=== PATIENT | female | born 1955 | race Caucasian/White ===

== ENCOUNTER 2020-03-20 08:29 | Emergency (ER) | payer SELFPAY ==
[~2020-03-20] VITALS: Ht 162.6 cm; Wt 77.1 kg
[2020-03-20] MEDS ORDERED: HYDROCODONE/APAP 5MG-325MG TAB PO ONE (08:45)
[2020-03-20] MEDS ORDERED: ONDANSETRON HCL 4 MG ORAL DISINTEGRATING TAB PO ONE (08:45)
--- NOTE | 2020-03-20 09:32 | Emergency Department Note ---
History of Present Illnes History of Present Illness Chief Complaint: Head/Face Trauma History of Present Illness This is a 64 year old female slipped and fell out of tub and hit back of head. States she had no LOC, but felt "dazed" for a second. Pt [id number]. ambulatory. 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 Any updates have been documented here. Past Medical History Recent Fever: No Clinical Suspicion of Infectio: No New/Unexplained Change in Ment: No Past Medical History: Hypertension, Depression, Hyperlipedemia Other Medical History: DEPRESSION HIGH CHOLESTEROL Other Surgery: SINUS SURGERY Social History Smoking Cessation: Current every day smoker Counseling Performed: No Alcohol Use: Occasional Any Illegal Drug Use: No TB Exposure/Symptoms: No Physically hurt or threatened: No Family History Family history of heart diseas: No Other Last Tetanus: UNK Any Pre-Existing Lines (PICC,: No Review of Systems Review of Systems Constitutional: Reports no symptoms EENTM: Reports no symptoms Cardiovascular: Reports no symptoms Respiratory: Reports no symptoms Gastrointestinal: Reports no symptoms Genitourinary: Reports no symptoms Musculoskeletal: Reports no symptoms Integumentary: Reports no symptoms Neurological: Reports as per HPI, Reports headache Psychological: Reports no symptoms Endocrine: Reports no symptoms Hematological/Lymphatic: Reports no symptoms Physical Exam Related Data Allergies: Coded Allergies: codeine (Verified Allergy, Unknown, 02/16/17) Triage Vital Signs Vital Signs Date Time Temp Pulse Resp B/P (MAP) Pulse Ox O2 Delivery O2 Flow Rate FiO2 03/20/20 08:36 97.8 102 18 176/117 100 Room Air Vital signs reviewed: Yes Physical Exam CONSTITUTIONAL Constitutional: Present well-developed, Present well-nourished HENT HENT: Present normocephalic, Present atraumatic, Present oropharynx clear/moist, Present nose normal HENT L/R: Present left ext ear normal, Present right ext ear normal EYES Eyes: Reports PERRL, Reports conjunctivae normal NECK Neck: Present ROM normal, Present supple, Present other (no midline spine tenderness) PULMONARY Pulmonary: Present effort normal, Present breath sounds normal CARDIOVASCULAR Cardiovascular: Present regular rhythm, Present heart sounds normal, Present capillary refill normal, Present normal rate GASTROINTESTINAL Abdominal: Present soft, Present nontender, Present bowel sounds normal GENITOURINARY Genitourinary: Present exam deferred SKIN Skin: Present warm, Present other (3 cm superficial laceration posterior scalp, no hematoma and no active bleeding) MUSCULOSKELETAL Musculoskeletal: Present ROM normal NEUROLOGICAL Neurological: Present alert, Present oriented x 3, Present DTRs normal, Present no gross motor or sensory deficits; Absent cranial nerve deficit, Absent sensory deficit, Absent abnormal gait, Absent weakness PSYCHOLOGICAL Psychological: Present mood/affect normal, Present judgement normal Results Imaging Imaging results reviewed: Yes Procedures Laceration Laceration: Laceration 1 Site: scalp (POSTERIOR) Size (cm): 3 Description: linear Depth: simple, single layer Local anesthesia: lidocaine 1% Amount of anesthesia (mL): 4 Pre-repair: irrigated extensively, deep structures intact Skin layer closed with: other (MAX X 3) Number of sutures: 3 Assessment & Plan Medical Decision Making MDM fall with superficial posterior scalp laceration - CT brain/c-spine r/o cerebral hemorrhage, c-spine fx, repair lac Reassessment Reassessment DC HOME, TYLENOL, MOTRIN DIRECTED, F/U PCP TOMORROW, RTED PRN, MAX OUT IN 7-10 DAYS, OTC IBUPROFEN/TYLENOL, TRAMADOL (#12) Assessment & Plan Final Impression: (1) Fall (2) Laceration of scalp (3) Contusion Depart Disposition: HOME, SELF-CARE Last Vital Signs Date Time Temp Pulse Resp B/P (MAP) Pulse Ox O2 Delivery O2 Flow Rate FiO2 03/20/20 08:36 97.8 102 18 176/117 100 Room Air Medications in the ED Ondansetron HCl 4 mg ONCE ONCE PO Last administered on 03/20/20at 08:56; Admin Dose 4 MG; Start 03/20/20 at 08:45; Stop 03/20/20 at 08:46; Status DC Acetaminophen/ Hydrocodone Bitart 1 ea ONCE ONCE PO Last administered on 03/20/20at 08:56; Admin Dose 1 EA; Start 03/20/20 at 08:45; Stop 03/20/20 at 08:46; Status DC PARKER ALMONTE MD Mar 20, 2020 09:32
--- NOTE | 2020-03-20 09:33 | Diagnostic Imaging Report ---
CT BRAIN WO HISTORY: Fall COMPARISON: None. TECHNIQUE: Noncontrast axial scans were obtained from skull base to the vertex. Coronal and sagittal reconstructions obtained from the axial data. One or more of the following dose reduction techniques were used: Automated exposure control, adjustment of the mA and/or kV according to patient size, and/or utilization of iterative reconstruction technique. DISCUSSION: Scalp/Skull: Right parietal scalp hematoma/laceration without calvarial fracture. Brain sulci: Appropriate for patient's age. Ventricles: Normal in size and configuration. No hydrocephalus. Extra-axial spaces: No masses or fluid collections. Carotid siphon calcifications are present. Parenchyma: No abnormal densities. No mass, hemorrhage, or large vascular territory acute infarct. Dural sinuses: No abnormal densities. Sellar/Suprasellar region: Intact. Skull base: Intact. Incidental findings: None. IMPRESSION: No acute intracranial abnormalities. Signed by: Dr. Colt Eddy M.D. on 03/20/2020 9:30 AM
--- NOTE | 2020-03-20 09:40 | Diagnostic Imaging Report ---
CT CERVICAL SPINE WO HISTORY: Fall COMPARISON: None. TECHNIQUE: CT of the cervical spine without contrast. Sagittal and coronal reformations were created. One or more of the following dose reduction techniques were used: Automated exposure control, adjustment of the mA and/or kV according to patient size, and/or utilization of iterative reconstruction technique. FINDINGS: Cervical lordosis is reversed. Cervicothoracic dextroscoliosis is partially imaged No fractures, compression deformity, or destructive osseous lesions are seen. The craniocervical junction is intact. No gross spinal canal masses are seen. The paravertebral and paraspinal soft tissues are unremarkable. Degenerative changes: Spondylotic changes are severe at C5-C6 and moderate at C6-C7. Grade 1 anterolisthesis of C4 on C5 is likely due to left-sided facet arthrosis. There is at least mild canal stenosis at C5-C6 due to posterior disc osteophyte complex. Multilevel mild to moderate bilateral foraminal stenoses are due to uncovertebral and facet arthrosis. Incidental findings: Mild bilateral carotid bulb calcified plaque is present. The carotid arteries have a retropharyngeal course. IMPRESSION: 1. No acute osseous abnormalities. 2. Severe C5-C6 and moderate C6-C7 spondylosis. 3. Grade 1 anterolisthesis of C4 on C5 is likely due to left-sided facet arthrosis. Signed by: Dr. Colt Eddy M.D. on 03/20/2020 9:36 AM
[2020-03-20] MEDS ORDERED: KETOROLAC TROMETHAMINE 60 MG/2 ML VIAL IM ONE (10:30)
== END 2020-03-20 10:46 | disposition home or self-care (01) ==
LOC: ER 08:45
DX: S01.01XA Laceration without foreign body of scalp, initial encounter (principal); W18.2XXA Fall in (into) shower or empty bathtub, initial encounter; Y93.E1 Activity, personal bathing and showering; Y92.002 Bathroom of unspecified non-institutional (private) residence as the place of occurrence of the external cause; I10 Essential (primary) hypertension; E78.5 Hyperlipidemia, unspecified; F32.9 Major depressive disorder, single episode, unspecified; F17.210 Nicotine dependence, cigarettes, uncomplicated
CPT/HCPCS: 12002; 70450; 72125; 99284; Q0162

== ENCOUNTER 2022-11-13 16:04 | Emergency (ER) | payer MEDICARE ==
[~2022-11-13] VITALS: Ht 165.1 cm; Wt 113.4 kg
[2022-11-13] MEDS ORDERED: ONDANSETRON HCL INJ 2MG/ML 2ML 2 MG/ML VIAL ONE (16:20)
[2022-11-13] MEDS ORDERED: SODIUM CHLORIDE 0.9% 1000ML 1,000 ML ONE (16:20)
[2022-11-13] MEDS ORDERED: TETANUS/DIPHTHERIA TOX ADULT 0.5 ML SYR ONE (16:20)
[2022-11-13] MEDS ORDERED: HYDROMORPHONE 1MG/1ML INJ ONE (16:20)
[2022-11-13] MEDS ORDERED: PROPOFOL IV EMULSION 10 MG/ML 20 ML VIAL ONE (16:27)
[2022-11-13] MEDS ORDERED: HYDROMORPHONE 1MG/1ML INJ IV STA (16:43)
[2022-11-13] MEDS ORDERED: ONDANSETRON HCL INJ 2MG/ML 2ML 2 MG/ML VIAL IV STA (16:43)
[2022-11-13] MEDS ORDERED: PROPOFOL IV EMULSION 10 MG/ML 20 ML VIAL IV ONE (16:45)
[2022-11-13] MEDS ORDERED: SODIUM CHLORIDE 0.9% 1000ML 1,000 ML IV ONE (16:45)
[2022-11-13] MEDS: TETANUS/DIPHTHERIA TOX ADULT 0.5 ML SYR IM ONE ×2 (16:55→16:56)
[2022-11-13 16:59] LABS: BASOPHILS # (AUTO) 0.1 (0.0-0.1); BASOPHILS % 0.4 % (0.0-1.0); LYMPHOCYTES # (AUTO) 2.1 (1.0-3.2); LYMPHOCYTES % 15.4 % (18.0-39.1); MEAN CORPUSCULAR HEMOGLOBIN 29.6 pg (28-32); MEAN CORPUSCULAR HGB CONC 31.6 g/dL (31-35); MEAN CORPUSCULAR VOLUME 93.8 fL (81-99); MONOCYTES # (AUTO) 0.9 (0.2-0.8); MONOCYTES % 6.3 % (4.4-11.3); NEUTROPHILS # (AUTO) 10.6 (2.1-6.9); NEUTROPHILS % 77.2 % (38.7-80.0); PLATELET COUNT 362 x10e3/uL (140-360); RED BLOOD COUNT 4.05 x10e6/uL (3.6-5.1); RED CELL DISTRIBUTION WIDTH 17.7 % (11.7-14.4)
[2022-11-13 17:06] LABS: INR 0.9; PROTHROMBIN TIME 12.6 seconds (11.9-14.5)
[2022-11-13 17:07] LABS: PARTIAL THROMBOPLASTIN TIME 28.6 seconds (23.8-35.5)
[2022-11-13 17:15] LABS: ALBUMIN 3.8 g/dL (3.5-5.0); ANION GAP 19.8 mmol/L (8-16); CALCIUM 9.2 mg/dL (8.4-10.2); CREATININE, SERUM 0.77 mg/dL (0.57-1.11); POTASSIUM 3.8 mmol/L (3.5-5.1)
[2022-11-13] MEDS ORDERED: Morphine 4mg INJECTION 4 MG/ML INJ IV ONE (17:15)
[2022-11-13 17:27] VITALS: O2SAT 97
== END 2022-11-13 18:08 | disposition short-term general hospital (02) ==
LOC: ER 16:10
DX: S82.832B Other fracture of upper and lower end of left fibula, initial encounter for open fracture type I or II (principal); W01.0XXA Fall on same level from slipping, tripping and stumbling without subsequent striking against object, initial encounter; Y93.01 Activity, walking, marching and hiking; Y92.89 Other specified places as the place of occurrence of the external cause; I10 Essential (primary) hypertension; E78.5 Hyperlipidemia, unspecified; F32.A Depression, unspecified; E78.00 Pure hypercholesterolemia, unspecified; Z20.822 Contact with and (suspected) exposure to COVID-19
CPT/HCPCS: 27818; 36415; 73590; 73610; 80053; 80320; 85025; 85610; 85730; 90471; 90714; 99285; J0690; J1170; J2270; J2405; J2704; J7030; J7050; U0002